=== PATIENT | male | born 1960 | race Caucasian/White ===

== ENCOUNTER 2019-09-22 15:30 | Emergency (ER) | payer OTHER, SELFPAY ==
--- NOTE | ~2019-09-22 | XR_ITS ---
EXAMINATION: XR chest 2V DATE: 09/22/2019 16:07 INDICATION: Left-sided chest pain. TECHNIQUE: Frontal and lateral views of the chest were obtained. COMPARISON: CT abdomen and pelvis 02/26/2015 FINDINGS: The chest demonstrates clear lungs without pneumonia, pleural effusion, or pneumothorax. Th e heart size is normal. There is an old fracture deformity of right clavicle. IMPRESSION: 1. No acute cardiopulmonary disease. Reviewed, dictated and finalized at location A.
--- NOTE | ~2019-09-22 | CT_ITS ---
EXAMINATION: CTA chest PE protocol DATE: 09/22/2019 16:40 CDT INDICATION: Chest pain. Left arm pain. TECHNIQUE: Computed tomographic angiography (CTA) of the chest was performed with 100 mL Omnipaque-35 0 intravenous contrast. The dose-length product was 653.47 mGy-cm. Maximum intensity projection 3D-re constructions of the aorta and other arteries were constructed by the technologist on a separate work station. COMPARISON: Chest x-ray dated 09/22/2019 FINDINGS: The study is technically adequate without evidence for pulmonary embolism. No significant p leural or pericardial effusion. There is right hilar and mediastinal lymphadenopathy. Cardiomegaly. O ssified granulomas of the spleen, consistent with chronic granulomatous disease. Otherwise, the visua lized aspects of the upper abdomen are unremarkable. No focal pneumonia. Dependent atelectasis. No en dobronchial lesions. No pulmonary nodules/masses. Mild thoracic spondylosis. IMPRESSION: 1. No evidence for pulmonary embolism. No acute cardiopulmonary disease. 2: Mediastinal and right hilar lymphadenopathy, likely reactive. Reviewed, dictated and finalized at location A.
--- NOTE | 2019-09-22 15:31 | ECG_ITS ---
Measurements Intervals [place] Rate: 80 P: 16 W[place]: 144 QRS: 35 QRSD: 100 T: 27 QT: 351 QTc: 405 Interpretive Statements SINUS RHYTHM NORMAL ECG Electronically Signed On 09-22-2019 15:51:24 CDT by Luis Enrique Charles D.O.
[2019-09-22 15:37] VITALS: BP 152/92; PULSE 75; RESP 18; TEMP 36.6; O2SAT 97
[2019-09-22 15:44] LABS: Basophils Absolute Auto 0.1 K/mm3 (0.0-0.1); Basophils Percent Auto 0.8 % (0.2-1.2); Eosinophils Absolute Auto 0.2 K/mm3 (0-0.3); Eosinophils Percent Auto 3.5 % (0-4.4); Hematocrit 47.8 % (42.0-52.0); Immature Granulocyte Absolute 0.02 K/mm3 (0.00-0.031); Immature Granulocyte Percent A 0.3 % (0-0.5); Lymphocytes Absolute Auto 2.06 K/mm3 (0.9-3.2); Lymphocytes Percent Auto 31.7 % (18.3-44.2); Mean Corpuscular HGB Conc 35.6 g/dl (32-36); Mean Corpuscular Hemoglobin 30.6 pg (26-34); Mean Corpuscular Volume 86.1 fl (80-100); Mean Platelet Volume 10.2 fl (7.4-10.4); Monocytes Absolute Auto 0.4 K/mm3 (0.1-0.6); Monocytes Percent Auto 6.6 % (2.6-8.5); Neutrophils Absolute Auto 3.7 K/mm3 (1.3-6.7); Neutrophils Percent Auto 57.1 % (45.5-73.1); Platelet Count Result 170 k/mm3 (150-375); Red Blood Count 5.55 M/mm3 (4.6-6.20); Red Cell Distribution Width 12.3 % (11.5-14.5); White Blood Count 6.5 K/mm3 (4.5-10.0)
[2019-09-22 15:52] LABS: Prothrombin Time 13.1 Seconds (11.1-14.7)
[2019-09-22 15:53] LABS: Partial Thromboplastin Time 28.2 SECONDS (22.3-36.8)
[2019-09-22 15:55] LABS: Blood Urea Nitrogen 23 mg/dL (9-20); Calcium 9.5 mg/dL (8.4-10.2); Carbon Dioxide 30 mmol/L (22-30); Chloride 98 mmol/L (98-107); Estimated CRCL calculation 88 ml/min; Estimated Glomerular Filt Rate > 60; Glucose 119 mg/dL (75-110); Potassium 4.2 mmol/L (3.4-5.0); Sodium 138 mmol/L (137-145)
[2019-09-22 16:07] LABS: Troponin I < 0.012 ng/mL (0.000-0.034)
--- NOTE | 2019-09-22 16:19 | ED.CHESTPAIN ---
HPI - Chest Pain General Chief Complaint: Chest Pain Stated Complaint: CP, left arm pain Time Seen by Provider: 09/22/19 16:06 History of Present Illness HPI narrative: Patient presents with his for chest pain for a week. It is in the left mid chest, and is currently a 4 out of 10. He also has associated left arm pain and he points in 3 particular spots, the posterior upper arm, lateral forearm, and near the wrist. He gets the arm pain at the same time as the chest pain. It occurs at rest, and goes away with motion or activity. The pain is been much greater at home, does not affect him and his workday. He has no known heart disease. He has not been sick in the last couple weeks. His previous surgery includes a nasoplasty. He does not smoke cigarettes, drink alcohol, or do drugs. 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 His gives him a testosterone shot every 3 weeks. MD complaint: chest pain Onset (ago): week(s) Timing of current episode: episodic Prior episodes: Yes Onset: during rest Pain location: left chest Pain radiation: left arm Severity: moderate Relieving factors: movement and other (Activity or exertion) Exacerbating factors: other (Rest) Related Data Home Medications Medication Instructions Recorded Confirmed aspirin 325 mg PO DAILY 09/22/19 gabapentin 09/22/19 metformin mg PO 09/22/19 metoprolol succinate PO 09/22/19 niacin 500 mg PO DAILY 09/22/19 sulindac 09/22/19 tamsulosin mg PO 09/22/19 tapentadol [Nucynta] mg PO 09/22/19 testosterone cypionate mg 09/22/19 tramadol mg PO 09/22/19 Allergies Allergy/AdvReac Type Severity Reaction Status Date / Time No Known Allergies Allergy Verified 09/22/19 16:21 Review of Systems Review of Systems: Narrative: CONSTITUTIONAL: Denies fever, chills, or sweats. EYES: Denies visual changes, redness, or discharge. ENT: Denies rhinorrhea, congestion, sore throat, or otalgia. CARDIOVASCULAR: He has chest pain, but not palpitations, or edema. RESPIRATORY: Denies cough or dyspnea. GASTROINTESTINAL: Denies abdominal pain, nausea, vomiting, or diarrhea. GENITOURINARY: Denies dysuria or hematuria. SKIN: Denies rash or itching. MUSCULOSKELETAL: Denies back pain, joint pain, or myalgia. NEUROLOGIC: Denies headache, numbness, or weakness. PSYCHIATRIC: Denies anxiety or depression. [facility] Past Medical History Medical History (Updated 09/22/19 @ 17:21 by hSey Leos MD) Chest pain Testosterone deficiency Surgical History Surgical History History of nasal surgery Social History Social History (Updated 09/22/19 @ 16:22 by Shey Leos MD) Smoking status: Never smoker Alcohol intake: never Substance use: never Gender identity (if verbalized by the patient): Male Exam Narrative: Exam Narrative: GENERAL: Well-appearing, well-nourished, and in no acute distress. HEAD: Normocephalic, atraumatic. EYES: PERRLA and EOMI. ENT: Nares clear, no rhinorrhea or epistaxis. Mucous membranes moist. NECK: Supple. CHEST: Clear to auscultation. No respiratory distress. HEART: Regular rate and rhythm. No murmur heard. Normal peripheral pulses. ABDOMEN: Soft, nontender, nondistended, normal active bowel sounds. EXTREMITIES: Normal range of motion. No edema. SKIN: Warm, dry, no rash. NEURO: No focal deficits. Alert and oriented x3. PSYCH: Normal mood and affect. Course Reevaluation(s) Reevaluation #1: Went in to update the patient and his on the good findings of the CAT scan. His pain is better just lying here in the ER. I recommended he see Dr. Guadarrama for risk stratification of coronary artery disease, and follow-up with primary doctor for possibility of a neuromuscular disease. They agree. Date: 09/22/19 Time: 17:22 Vital Signs Vital signs: Vital Signs Temperature 98 F 09/22/19 15:37 Pulse Rate 75 09/22/19 15:37 Respiratory Rate 18 09/22/19
[2019-09-22] MEDS: ASPIRIN 81 MG CHEWABLE TABLET 324 MG PO (16:21)
[2019-09-22 16:24] VITALS: PULSE 72
[2019-09-22 16:30] LABS: Alanine Aminotransferase 29 U/L (4-50); Albumin Level 4.8 g/dL (3.5-5.1); Alkaline Phosphatase 54 U/L (38-126); Aspartate Amino Transferase 27 U/L (17-59); Bilirubin,Total 0.5 mg/dL (0.2-1.3)
[2019-09-22 16:36] LABS: D Dimer 0.27 ug/mL (<0.48)
[2019-09-22 17:29] VITALS: BP 152/95; PULSE 70; RESP 18; O2SAT 97
== END 2019-09-22 17:30 | disposition home or self-care (01) ==
PROVIDERS: Emergency Provider Emergency Medicine; PCP Family Medicine Adolescent Medicine
DX: R07.89 Other chest pain (principal); Z79.82 Long term (current) use of aspirin; Z79.84 Long term (current) use of oral hypoglycemic drugs
CPT/HCPCS: 36415; 71046; 71275; 80048; 80076; 84484; 85025; 85380; 85610; 85730; 93005; 99284; A9270; Q9967

== ENCOUNTER 2021-07-11 15:29 | Outpatient (CLI) | payer OTHER, SELFPAY ==
--- NOTE | ~2021-07-11 | MR_ITS ---
EXAMINATION: MR brain/brain stem wo con DATE: 07/11/2021 16:23 INDICATION: Amnesia TECHNIQUE: Magnetic resonance imaging (MRI) of the brain and brainstem was performed without intraven ous contrast. Sequences included sagittal and axial T1-weighted SE, axial diffusion-weighted FS SE, a xial T2*-weighted GRE, axial T2-weighted FLAIR, and axial T2-weighted FSE. Apparent diffusion coeffic ient (ADC) maps were created. COMPARISON: Head CT dated 04/20/2011 FINDINGS: There are no areas of restricted diffusion to suggest acute infarction. No intracranial hemorrhage or abnormal intracranial mass lesion. There are scattered areas of nonspecific increased T2-weighted si gnal intensity in the cerebral white matter, predominantly involving the deep and periventricular whi te matter. There are no intraparenchymal signal abnormalities seen on the other pulse sequences. The ventricles are symmetric and normal in size. There are no abnormal extra-axial fluid collections. Hang w voids are seen in the cerebral arteries on the T2-weighted sequences consistent with their expected patency. Mild mucosal thickening the bilateral ethmoid sinuses. Visualized orbits and soft tissues a re unremarkable. IMPRESSION: 1. Mild scattered foci of white matter T2 hyperintensity which is within normal limits for age and li nevaeh sequela of chronic small vessel ischemic disease. No acute intracranial process. Reviewed, dictated and finalized at location B. IMPRESSION: 1. Mild scattered foci of white matter T2 hyperintensity which is within normal limits for age and likely sequela of chronic small vessel ischemic disease. No acute intracranial process.
== END 2021-07-11 15:30 | disposition home or self-care (01) ==
LOC: ANHIMG 15:33
PROVIDERS: PCP Family Medicine Adolescent Medicine; Visit Provider Family Medicine Adolescent Medicine
DX: R41.3 Other amnesia (principal); R93.0 Abnormal findings on diagnostic imaging of skull and head, not elsewhere classified
CPT/HCPCS: 70551

== ENCOUNTER 2024-11-14 08:16 | Outpatient (CLI) | payer OTHER, SELFPAY ==
--- NOTE | ~2024-11-14 | MR_ITS ---
EXAMINATION: MR lumbar spine wo con DATE: 11/14/2024 08:44 INDICATION: Low back pain TECHNIQUE: Magnetic resonance imaging (MRI) of the lumbar spine was performed without intravenous contrast. Sequences included sagittal T2-weighted FSE, sagittal T2-weighted FS FSE, sagittal T1-weighted FSE, and axial T2-weighted FSE. COMPARISON: None FINDINGS: Alignment is normal. Vertebral body heights are normal. There are prominent bridging or nearly bridging endplate osteophytes from T12 through S1 consistent with diffuse idiopathic skeletal hyperostosis (DISH). There is mild marrow edema in the junction of the several of the anterior vertebral bodies and the endplate osteophytes. Marrow signal is otherwise normal. Mild disc height loss at T11-T12, L3-L4 and L4-L5. There are annular fissures at and L2-L3 through L5- S1. The conus medullaris terminates at L1-L2. There is normal signal in the caudal spinal cord. There are T2 hyperintense cysts at both kidneys, the largest at lower pole of the right kidney measuring 1.3 cm. Paravertebral soft tissues are unremarkable. The following disc levels are specifically discussed: T12-L1: Disc is mildly bulging. There is mild bilateral facet joint osteoarthritis. There is mild right neural foraminal stenosis. There is minimal central canal stenosis. L1-L2: The disc does not extend beyond the endplate margin. There is mild bilateral facet joint osteoarthritis. There is mild bilateral neural foraminal stenosis. There is no central canal stenosis. L2-L3: Disc is bulging. There is mild left and moderate right facet joint osteoarthritis. There is moderate bilateral neural foraminal stenosis. There is mild central canal stenosis. L3-L4: Disc is bulging. There is mild left and moderate right facet joint osteoarthritis. There is moderate bilateral neural foraminal stenosis. There is mild central canal stenosis and moderate narrowing of the left and right lateral recesses. L4-L5: Disc is bulging. There is hypertrophy of the ligamentum flavum. There is moderate right and severe left facet joint osteoarthritis. There is mild bilateral neural foraminal stenosis. There is moderate central canal stenosis and moderate narrowing of the left and right lateral recesses. L5-S1: Disc is bulging with superimposed annular fissure and small central disc protrusion. There is mild to moderate left and moderate right facet joint osteoarthritis. There is mild left and moderate right neural foraminal stenosis. There is mild central canal stenosis and mild narrowing of the left and right lateral recesses. IMPRESSION: 1. Interval progression of still mild lumbar spondylosis. Reviewed, dictated and finalized at location A.
== END 2024-11-14 08:17 | disposition home or self-care (01) ==
PROVIDERS: PCP Nurse Practitioner Adult Health; Visit Provider Family Medicine
DX: M47.816 Spondylosis without myelopathy or radiculopathy, lumbar region (principal); M25.50 Pain in unspecified joint; G89.29 Other chronic pain
CPT/HCPCS: 72148

== ENCOUNTER 2024-12-01 11:41 | Day surgery (SDC) | payer OTHER, SELFPAY ==
[2024-11-28 08:53] VITALS: BMI 29.7
--- NOTE | ~2024-12-01 | XR_ITS ---
XR fluoroscopy no charge Indication:Bilateral intra-articular SI joint steroid injection TECHNIQUE: Fluoroscopy used during Bilateral intra-articular SI joint steroid injection performed by [Benito Trejo MD] on 12/01/2024. 38 seconds of fluoroscopy with 9 fluoroscopic images captured. FINDINGS: Correlate with procedure note. IMPRESSION: Fluoroscopy used during Bilateral intra-articular SI joint steroid injection. Reviewed, dictated and finalized at location O.
[2024-12-01 11:55] VITALS: BP 158/96; PULSE 77; RESP 16; TEMP 36.6; O2SAT 97
--- NOTE | 2024-12-01 12:03 | WPDHPUPDATE1 ---
History and Physical Update Update Date/Time: 12/01/24 12:03 History and Physical has been reviewed, including an updated exam of the patient. There are NO changes in the patient's condition. Risks, benefits, and alternatives have been discussed and questions answered. Patient agrees to proceed with procedure.
--- NOTE | 2024-12-01 12:04 | P.OP_ITS ---
Procedure Note - Detailed Date of Procedure 12/01/24 Pre-op Diagnosis sacroiliitis, sacroiliac joint arthropathy Post-op Diagnosis Same Procedure Performed Bilateral Sacroiliac Joint Steroid Injection under Fluoroscopic Guidance and with Contrast Control. Surgeon Benito Trejo MD Director Of Marketing None Anesthesia Local Description of Procedure INFORMED CONSENT: Risks, benefits and alternatives to the procedure were discussed in detail with the patient who expressed explicit understanding and consent to proceed. Patient was informed verbally and in written form regarding the risks associated with the procedure including the low risk of serious infection, bleeding/bruising, allergic reaction, nerve or organ injury, paralysis, procedural site pain or discomfort, worsening pain and/or mobility, failure to treat and/or disfigurement. The patient expressed explicit understan ding and consent to proceed. All materials required for the procedure were available prior to procedure start. Site and side were marked prior to procedure and confirmed in the presence of the patient. PROCEDURE IN DETAIL: The patient was brought to the procedural suite and placed in the prone position. Patient was made comfortable with use of pillows under the head/chest, hips and ankles. Skin overlying the injection site on the affected side(s) was prepared broadly with ChloraPrep applicator and draped in a sterile manner. Aseptic technique was used throughout. The right SI joint was identified in the AP view and contralateral oblique angulation with caudal tilt was utilized to optimize visualization of the inferior and medial joint line representing the posterior portion of the joint. Local anesthesia was established by infiltration with approximately 5 mL of 2% lidocaine via a 1-1/2 inch 27-gauge needle. A 22-gauge 3.5 inch Quincke spinal needle was advanced until the needle entered the inferior third of the joint space approximately 1cm cephalad from its most inferior point. In the AP view, 0.5 mL of Omnipaque 300 contrast medium was injected after negative aspiration for CSF, blood or other bodily fluid, showing appropriate intra-articular spread of contrast without evidence of intravascular, perineural or intrathecal placement. A 1.5 mL solution containing 5 mg of dexamethasone in 0.5% PF bupivacaine was injected after repeat negative aspiration. Appropriate spread of the injectate was confirmed with washout of previous injected contrast. No parasthesias were elicited. Needle was removed completely intact without difficulty. The same exact procedure was repeated for all remaining levels on the contralateral side, left SI joint, modified as necessary to accommodate for the new target location with identical findings/results and no evidence of complication. Images were saved and documented in the patient chart. Patient's skin was berny ansed and sterile bandage applied. The patient tolerated the procedure well. The patient was transported to the recovery area in stable condition where they were observed for an appropriate amount of time prior to discharge, without evidence of complication. The patient was instructed to avoid excessive activity for the next 48 hours, including climbing and frequent use of stairs. Showers only for 48 hours. They were instructed not to drive or operate heavy machinery for 24 hours. They are to monitor for severe headaches, fevers, chills, night sweats, erythema/swelling at the site or any other signs of infection, bleeding/bruising, bowel or bladder changes as well as new pain, weakness or numbness in the upper or lower extremity. Should they notice these changes, they are instructed to call our office immediately or report directly to the nearest Emergency Department if no answer or if after posted office hours. COMPLICATIONS: None COMMENTS: None CONTRAST WASTED: 29mL Omnipaque 300. Complications No immediate complications Condition Stable Disposition Same day [facility] Billing Surgery - Charge Forward: Surgery Billing
[2024-12-01 12:41] VITALS: BP 177/88; PULSE 91; RESP 12; O2SAT 96
[2024-12-01] MEDS: BUPivacaine HCL 0.5% 10 ML AMP INFILTRATE (12:45)
[2024-12-01] MEDS: LIDOCAINE 1% PF INJ 5 ML VIAL INFILTRATE (12:45)
[2024-12-01 12:46] VITALS: BP 172/87; PULSE 90; RESP 12; O2SAT 96
[2024-12-01] MEDS: dexAMETHasone SOD PHOS INJ 10 MG/ML 1 ML VIAL IM (12:46)
[2024-12-01 12:50] VITALS: BP 156/88; PULSE 75; RESP 16; O2SAT 99
== END 2024-12-01 13:02 | disposition home or self-care (01) ==
PROVIDERS: PCP Family Medicine; Visit Provider Anesthesiology Pain Medicine
PROC: (CPT 27096; principal; 2024-12-01 12:50)
DX: M46.1 Sacroiliitis, not elsewhere classified (principal)
CPT/HCPCS: 27096; 99199; G0260; J1100